=== PATIENT | female | born 1995 | race Two or more races ===

== ENCOUNTER 2017-06-09 12:49 | Emergency (ER) | payer BC ==
--- NOTE | 2017-06-09 14:44 | CPEKG ---
Heart Rate: 58 RR Interval: 1034 P-R Interval: 132 QRSD Interval: 88 QT Interval: 412 QTC Interval: 405 P Mercer: 65 QRS Mercer: 90 T Wave Mercer: 55 EKG Severity - BORDERLINE ECG - EKG Impression: SINUS RHYTHM EKG Impression: BORDERLINE RIGHT AXIS DEVIATION EKG Impression: BORDERLINE T ABNORMALITIES, ANTERIOR LEADS Electronically Signed By: Herbie Strauss 12-Jun-2017 13:56:53
--- NOTE | 2017-06-09 15:55 | EDPHY ---
General - History Smoking Status: Never smoked Narrative: CHIEF COMPLAINT: Syncope, left lac HISTORY OF PRESENT ILLNESS: Patient reports losing consciousness this afternoon while sitting on the toilet. She was urinating when she was about to stand up, she lost consciousness, striking her head on the door knob. She did not fall from standing position. She has minimal headache. She has pain more her lip was lacerated. She has some dental pain. No neck pain or stiffness. No visual disturbance. No nausea or vomiting. No chest pain. She has had multiple episodes of syncope in the past. No formal workup for this. TIME OF INJURY: Less than 4 hours prior to arrival TETANUS STATUS: Up-to-date MEDICAL/SURGICAL/SOCIAL HISTORY: Previous episodes of syncope. IUD in place REVIEW OF SYSTEMS: Ten systems reviewed and are negative unless otherwise noted in the HPI EXAMINATION General Appearance: Alert, no distress Head: normocephalic, atraumatic. No Last sign. No raccoon eyes. No outward signs of trauma other than the lip laceration as below Neck: Supple nontender. Midline trachea. No crepitus, step-off or deformity. Painless range of motion all planes Cardiovascular: Pulses normal throughout. Regular rate rhythm. No murmur. Brisk cap refill Neurological: GCS 15. A&O, sensory symmetric, strength symmetric. No pronator drift. No dysmetria. Skin: Warm and dry, no rash. 1 cm laceration on the inside of the lower lip. No communication to the outside. No foreign body. No laceration of the mucosa. Extremities: Nontender, no pedal edema DIFFERENTIAL DIAGNOSES: Including but not limited to lip laceration, vasovagal syndrome, pots, syncope MDM: 2:55 p.m. Laceration to the lower lip on the inner mucosa. This does not communicate with the external portion of the lip. There is no fractured tooth. There is no fracture on the gumline. No trismus. Laceration has been anesthetized. Proceed with irrigation closure. She has reported syncopal episode seems to have been orthostatic in nature. She is declining any further workup for this. No chest pain. No history of PE. 3:30 p.m. Lip laceration has been irrigated. Now that is clean there is a 2nd laceration that was not 1st appreciated. This on the outer lip. It is less than half a cm but does involve the subcutaneous portion of the lip. It does not involve the vermilion border. 3:50 p.m. Suspected vasovagal episode with subsequent lip lacerations. She is neuro intact. No acute distress. Vital signs stable. She has declined any further workup regarding the syncope. Lip lacerations have been repaired. Wound care discussed. Follow up here in 5-7 days for suture removal. Follow up with the on-call primary care physician, information provided. Return to ED for any dizziness, lightheadedness, near-syncope or syncope. She is comfortable this plan. PROCEDURE: Laceration repair, laceration 1. Inner lip Consent: Verbal Location: Inside of lower lip Length of repair: 1 cm Complexity: Simple Layer involvement: Single Anesthesia: Local per 1% lidocaine plain. 3 mL Irrigation: Extensive Debridement: None Procedure description: Following good anesthesia, the wound was copiously irrigated. Wound bed was explored and there is no foreign body noted. Wound borders were approximated well with good hemostasis. Tolerated well without complication. Suture/Staple material: 5-0 fast-absorbing gut, 2 simple interrupted sutures Wound care: Routine as discussed Suture/Staple removal: Absorbable PROCEDURE: Laceration repair, laceration 2. Outer lower lip Consent: Verbal Location: Outside of lower lip, no involvement vermilion border Length of repair: 0.75 cm Complexity: Simple Layer involvement: Single Anesthesia: Local. 1% lidocaine plain. 5 mL Irrigation: Extensive Debridement: None Procedure description: Following good anesthesia, the wound was copiously irrigated. Wound bed was explored and there is no foreign body noted. No involvement of the vermilion border. Wound borders were approximated well with good hemostasis. Tolerated well without complication. Suture/Staple material: 7-0 Prolene. One simple interrupted suture Wound care: Routine as discussed Suture/Staple removal:5-7 Days ED Precautions: Worsening pain. Erythema, edema, cyanosis, pallor, paresthesia or anesthesia. (Irineo Payan) The patient was evaluated and managed by the physician dietetic assistant. I have reviewed this chart and I agree with the findings and plan of care as documented , as indicated by my signature. I am the secondary supervising physician. ( Lindsay Cotto) - Objective Vital Signs: Initial Vital Signs Temperature (C) 36.8 C 06/09/17 12:52 Heart Rate 60 06/09/17 12:52 Respiratory Rate 16 06/09/17 12:52 Blood Pressure 116/71 06/09/17 12:52 O2 Sat (%) 97 06/09/17 12:52 O2 Delivery Mode Room Air Allergies/Adverse Reactions: No Known Allergies Allergy (Unverified 06/09/17 12:52) Home Medications: Medication Instructions Recorded NK [No Known Home Meds] 06/09/17 Departure - Departure Disposition: Home, Routine, Self-Care Clinical Impression: Vasovagal syncope Lip laceration Qualifiers: Encounter type: initial encounter Qualified Code(s): S01.511A - Laceration without foreign body of lip, initial encounter Condition: Good Instructions: Care For Your Stitches (ED), Laceration (ED), Syncope (ED), Care For Your Absorbable Stitches (ED), Driving Restrictions (ED) Additional Instructions: 1. Wound care for stitches as discussed 2. Contact the on-call primary care physician information. Follow up with them in the next 3 days 3. ED precautions for chest pain, lightheadedness, dizziness, near-syncope or syncope 4. Driving restrictions as discussed Referrals: NONE *PRIMARY CARE P,. [Primary Care Provider] - As per Instructions Rob Dean DO [Medical Doctor] - As per Instructions Jimbo Gonzales MD [Medical Doctor] - As per Instructions
[2017-06-09 16:22] VITALS: BP 112/77; PULSE 65; RESP 18; TEMP 97.9; O2SAT 98
== END 2017-06-09 16:40 | disposition home or self-care (01) ==
PROC: 0CQ4XZZ Repair Buccal Mucosa, External Approach (ICD-10-PCS; principal; 2017-06-09)
DX: S01.511A Laceration without foreign body of lip, initial encounter (principal); W22.8XXA Striking against or struck by other objects, initial encounter; R55 Syncope and collapse